=== PATIENT | female | born 1960 | race Hispanic/Latino ===

== ENCOUNTER → 2020-12-25 | Outpatient (CLI) | payer OTHER, SELFPAY ==
[~2020-12-25] MED LIST: LOSA50TA64 PO; METF-446 PO
== END | disposition home or self-care (01) ==
LOC: OIH 15:07
PROVIDERS: ATTEND Internal Medicine Nephrology
DX: Z13.6 Encounter for screening for cardiovascular disorders (principal)
CPT/HCPCS: 75571